=== PATIENT | female | born 1990 | race Caucasian/White ===

== ENCOUNTER 2017-01-24 06:01 | Day surgery (SDC) | payer OTHER ==
[~2017-01-24] VITALS: Ht 165.1 cm; Wt 106.0 kg
[2017-01-24] MEDS ORDERED: LIDOCAINE 1%-EPI 1:100K, 30ML ONE (06:24)
[2017-01-24 06:55] VITALS: BP 117/81
[2017-01-24] MEDS ORDERED: no meds per pt (06:55)
[2017-01-24 06:59] LABS: HEMOGLOBIN 13.1 g/dL (11.7-16.4)
[2017-01-24] MEDS ORDERED: LACTATED RINGERS 1,000 ML IV SCH (07:00)
[2017-01-24 07:11] LABS: BLOOD UREA NITROGEN 11 mg/dL (7-18)
[2017-01-24 07:14] LABS: HCG UR OBC PASS
[2017-01-24] MEDS ORDERED: MIDAZOLAM 1 MG/ML, 2ML ONE (07:18)
[2017-01-24] MEDS ORDERED: FENTANYL PF 250 MCG/5ML ONE (07:18)
[2017-01-24] MEDS ORDERED: SUCCINYLCHOLINE 20 MG/ML, 10ML ONE (07:19)
[2017-01-24] MEDS ORDERED: KETOROLAC 30 MG/1 ML ONE (07:19)
[2017-01-24] MEDS ORDERED: DEXAMETHASONE 4 MG/ML, 1ML ONE (07:19)
[2017-01-24] MEDS ORDERED: ROCURONIUM 10 MG/ML ONE (07:19)
[2017-01-24] MEDS ORDERED: ONDANSETRON 2MG/ML, 2ML ONE (07:19)
[2017-01-24] MEDS ORDERED: PROPOFOL 10 MG/ML, 20ML ONE (07:19)
[2017-01-24] MEDS ORDERED: PROMETHAZINE 25 MG/ML, 1ML IV PRN (08:00)
[2017-01-24] MEDS ORDERED: hydrALAzine 20 MG/ML, 1ML IV PRN (08:00)
[2017-01-24] MEDS ORDERED: MIDAZOLAM 1 MG/ML, 2ML IV PRN (08:00)
[2017-01-24] MEDS ORDERED: METOCLOPRAMIDE 5 MG/ML, 2ML IV PRN (08:00)
[2017-01-24] MEDS ORDERED: FENTANYL PF 100 MCG/2ML IV PRN (08:00)
[2017-01-24] MEDS ORDERED: ACETAMINOPHEN 325 MG TABLET PO PRN (08:00)
[2017-01-24] MEDS ORDERED: HYDROmorphone 1 MG/ML, 1ML IV PRN (08:00)
[2017-01-24] MEDS ORDERED: MEPERIDINE/PF 25MG/0.5ML IVPush PRN (08:00)
[2017-01-24] MEDS ORDERED: LABETALOL 5MG/ML, 20ML IV PRN (08:00)
[2017-01-24] MEDS ORDERED: OXYcodone 5 MG/5 ML ORAL.SOL UDC PO PRN (08:00)
[2017-01-24] MEDS ORDERED: ONDANSETRON 2MG/ML, 2ML IVPush PRN (08:00)
[2017-01-24] MEDS ORDERED: OXYcodone 5 MG/5 ML ORAL.SOL UDC ONE (08:27)
== END 2017-01-24 10:15 | disposition home or self-care (01) ==
LOC: OUT 06:01
PROVIDERS: ATTEND Obstetrics & Gynecology Gynecology
DX: Z30.2 Encounter for sterilization (principal); E66.9 Obesity, unspecified; Z68.38 Body mass index [BMI] 38.0-38.9, adult
CPT/HCPCS: 36415; 58661; 80048; 81003; 81025; 85025; 88302; J0330; J1100; J1885; J2250; J2405; J2704; J3010; J3490; J7120